=== PATIENT | female | born 2000 | race Caucasian/White ===

== ENCOUNTER 2025-03-02 21:45 | Emergency (ER) | payer MEDICAID, OTHER ==
[~2025-03-02] VITALS: Ht 165.1 cm; Wt 76.0 kg
[2025-03-02 22:03] VITALS: BP 112/78; TEMP 36.9; O2SAT 98
[2025-03-03] MEDS ORDERED: LORAZEPAM 2MG/ML INJ IM ONE ×2 (00:30→02:30)
[2025-03-03 00:58] LABS: BASOPHILS % 0.4 % (0.0-2.0); EOSINOPHILS % 0.6 % (0.0-5.0); HEMATOCRIT. 41.6 % (36.0-48.0); HEMOGLOBIN. 13.8 g/dL (12.0-16.0); MEAN CORPUSCULAR HEMOGLOBIN 28.4 pg (28.0-32.0); MEAN CORPUSCULAR HGB CONC 33.1 g/dL (31.0-37.0); MEAN CORPUSCULAR VOLUME 85.6 fL (81.0-99.0); MEAN PLATELET VOLUME 7.6 fl (7.4-10.4); MONOCYTES % 5.4 % (2.0-8.0); NEUTROPHILS % 66.6 % (40.0-76.0); PLATELET 209 x1000/uL (130-400); RED BLOOD CELL COUNT 4.86 mill/uL (4.2-5.4); RED CELL DISTRIBUTION WIDTH 17.4 % (11.6-14.6); WHITE BLOOD COUNT 6.9 x1000/uL (4.5-11.0)
[2025-03-03 01:06] LABS: CHLORIDE 107 mEq/L (98-107); POTASSIUM 4.4 mEq/L (3.5-5.1); SODIUM 140 mEq/L (136-145)
[2025-03-03 01:07] LABS: CALCIUM 9.5 mg/dL (8.7-10.4); CARBON DIOXIDE 24 mEq/L (21-32)
[2025-03-03] MEDS: DIPHENHYDRAMINE 50MG/ML VIAL IM ONE (01:10)
[2025-03-03 01:12] LABS: GLUCOSE 108 mg/dL (70-105)
[2025-03-03 01:13] LABS: ETHANOL BLOOD < 10 mg/dL (<10); UREA NITROGEN BLOOD 8 mg/dL (9-23)
[2025-03-03] MEDS: LORAZEPAM 2MG/ML UD SYRINGE IM NR ×2 (01:13→02:56)
[2025-03-03 01:14] LABS: ACETAMINOPHEN < 2 ug/mL (10-30); ALANINE AMINOTRANSFERASE 38 IU/L (10-49); ALBUMIN 4.5 g/dL (3.2-4.8); ASPARTATE AMINOTRANSFERASE 31 IU/L (<34)
[2025-03-03 01:15] LABS: BILIRUBIN TOTAL 0.8 mg/dL (0.1-1.0); PROTEIN TOTAL 7.4 g/dL (6.0-8.3)
[2025-03-03 01:16] LABS: T4 FREE 1.22 ng/dL (0.89-1.76)
[2025-03-03 01:17] LABS: THYROID STIMULATING HORMONE 2.03 uIU/mL (0.55-4.78)
[2025-03-03 01:18] LABS: HCG SCREEN NEGATIVE
[2025-03-03 02:20] LABS: *AMPHETAMINES SCREEN URINE PRESUMPTIVE POSITIVE (NEGATIVE); *BARBITURATES SCREEN URINE NEGATIVE (NEGATIVE); *BENZODIAZEPINES SCREEN URINE PRESUMPTIVE POSITIVE (NEGATIVE); *COCAINE SCREEN URINE NEGATIVE (NEGATIVE)
[2025-03-03 02:21] LABS: CANNABINOID URINE SCREEN NEGATIVE (NEGATIVE); ECSTASY MDMA SCREEN URINE NEGATIVE (NEGATIVE); METHADONE URINE SCREEN NEGATIVE (NEGATIVE); OPIATES URINE SCREEN NEGATIVE (NEGATIVE); PHENCYCLIDINE URINE SCREEN NEGATIVE (NEGATIVE)
[2025-03-03] MEDS: OLANZAPINE 10MG TABLET PO SCH (02:55)
[2025-03-03 03:08] VITALS: PULSE 89; RESP 20; O2SAT 100
== END 2025-03-03 03:09 | disposition home or self-care (01) ==
LOC: ER 21:45
DX: T43.621A Poisoning by amphetamines, accidental (unintentional), initial encounter (principal); F41.9 Anxiety disorder, unspecified; I48.91 Unspecified atrial fibrillation; Y92.89 Other specified places as the place of occurrence of the external cause
CPT/HCPCS: 93005; 99284; 80053; 80305; 80307; 80329; 80320; 84703; 84439; 83735; 84443; 85025; 36415; 96372; J1200; J2060; Z7610; G0480